=== PATIENT | male | born 1970 | race Caucasian/White ===

== ENCOUNTER 2019-02-27 12:35 | Emergency (ER) | payer SELFPAY ==
[~2019-02-27] VITALS: Ht 170.2 cm; Wt 75.0 kg
[2019-02-27] MEDS ORDERED: HYDROCODONE/ACETAMINOPHEN 5/325MG TABLET PO ONE (13:45)
[2019-02-27] MEDS ORDERED: CYCLOBENZAPRINE 10MG TABLET PO ONE (14:30)
[2019-02-27] MEDS ORDERED: IBUPROFEN 800MG TABLET PO ONE (16:15)
[2019-02-27 16:29] VITALS: BP 145/89
== END 2019-02-27 16:30 | disposition home or self-care (01) ==
LOC: ER 12:35
DX: S16.1XXA Strain of muscle, fascia and tendon at neck level, initial encounter (principal); M54.9 Dorsalgia, unspecified; R20.0 Anesthesia of skin; V89.2XXA Person injured in unspecified motor-vehicle accident, traffic, initial encounter; Y93.89 Activity, other specified; Y92.89 Other specified places as the place of occurrence of the external cause; Y99.8 Other external cause status
CPT/HCPCS: 71045; 72070; 72100; 99284